=== PATIENT | female | born 1960 | race Caucasian/White ===

== ENCOUNTER 2016-06-07 14:51 | Emergency (ER) | payer BC ==
--- NOTE | ~2016-06-07 | CT57 ---
[facility] A Service of [facility] RADIOLOGY TEXT RESULTS PATIENT: KARINA BLACKMON LOCATION: SED : 64 UNIT #: [id number] AGE: [address]: Logan Aiken MD SEX: F ORDER DR: [id number] [address] [address] [id number] E MR#: [id number] Acc #: [id number] NAME: KARINA BLACKMON. : 1960 SEX: F STUDY DATE/TIME: 06/07/2016 15:35 UNIT: SED ROOM: STUDY DESCRIPTION: CT Chest Wo Cont Attending Physician: Logan Aiken M.D. Ordering Physician: Logan Aiken M.D. Primary Care Physician: Efrain Andersen M.D. MEDICAL IMAGING REPORT This report is preliminary unless electronic signature is present. EXAM CT chest without contrast DATE 06/07/2016 at 15:35 HISTORY Left upper abdominal pain for 2 days, worse with cough. COMPARISON AP portable chest 10/22/2010. No prior CT chest for comparison at this institution. PROCEDURE 5 meters noncontrast axial images through the chest. Sagittal and coronal reformatted images were obtained. TECHNIQUE This CT exam was performed with one or more of the following radiation dose reduction techniques: automatic control, adjustment of mA and/or kV according to patient size, and iterative reconstruction. FINDINGS Linear opacities are present within the lingular segment of the left upper lobe and within the right lower lobe thought to represent areas of scarring or minimal atelectasis. However, no acute appearing lung consolidations are identified. Benign calcified granuloma is present posteriorly within the left lower lobe. No pericardial effusion, pleural effusion or pathologically enlarged lymph nodes. Imaged portion of the thyroid gland is normal. Heart size is normal. The liver is mildly and diffusely steatotic. 1.2 x 1.5 cm low-density left adrenal nodule (Hounsfield units 1.85) is consistent with benign adenoma. [facility] A Service [facility] RADIOLOGY TEXT RESULTS PATIENT: KARINA BLACKMON [facility] [id number] : 64 UNIT #: [id number] AGE: [address]: Logan Aiken MD SEX: F ORDER DR: No acute osseous abnormalities are identified. Mild degenerative endplate changes of the thoracic spine. IMPRESSION 1. No acute chest findings. There is no CT explanation for the patient's left upper quadrant abdominal pain and cough. 2. Mild linear subsegmental atelectasis or scarring in the lingula and right lower lobe. No consolidations. 3. Left adrenal adenoma. 4. Hepatic steatosis. 5. Benign calcified granulomatous change in the left lower lobe of the lung. Dictated by... Sandee Posadas M.D. THIS IS AN ELECTRONICALLY VERIFIED REPORT Sandee Posadas M.D. at 06/09/2016 7:02 PM LENORE/janneth TD: 06/08/2016 00:52 JOB #: [id number] MEDICAL IMAGING REPORT
[~2016-06-07 14:51] MED LIST: AMLODIPINE BESY10 MG PO; ANAPROX DS550 M1 PO; BYSTOLIC10 MG PO; COATED ASPIRIN325 M1 PO; KCL; LOVAZA1 G PO; NEXIUM; ORUDIS75 M1 PO; WELCHOL625 MG PO
[2016-06-07 15:11] LABS: URINE SOURCE CLEAN CATCH
[2016-06-07 15:12] LABS: URINE APPEARANCE CLEAR; URINE BILIRUBIN NEG (NEG); URINE BLOOD NEG (NEG); URINE COLOR YELLOW; URINE GLUCOSE NEG (NORM); URINE KETONE NEG (NEG); URINE LEUKOCYTE ESTERASE NEG (NEG); URINE NITRATE NEG (NEG); URINE PROTEIN NEG (NEG); URINE SPECIFIC GRAVITY <=1.005 (1.003-1.035); URINE UROBILINOGEN 0.2 MG/DL (NORM)
[2016-06-07 15:17] LABS: MICRO INDICATED? NO
[2016-06-07] MEDS ORDERED: ZITHROMAX (16:36)
[2016-06-07] MEDS ORDERED: ALBUTEROL17 GM INH (16:36)
[2016-06-07] MEDS ORDERED: HYDROMET SYRUP480 ML PO (16:37)
== END 2016-06-07 16:40 | disposition home or self-care (01) ==
LOC: SED 14:51
PROVIDERS: Emergency Medicine
DX: J18.9 Pneumonia, unspecified organism (principal); J44.9 Chronic obstructive pulmonary disease, unspecified; E78.5 Hyperlipidemia, unspecified; I10 Essential (primary) hypertension; F17.210 Nicotine dependence, cigarettes, uncomplicated; Z79.82 Long term (current) use of aspirin; Z79.899 Other long term (current) drug therapy
CPT/HCPCS: 71250; 81003; 96372; 99284; J1885